=== PATIENT | male | born 1975 | race Caucasian/White ===

== ENCOUNTER → 2017-05-20 | Outpatient (CLI) | payer OTHER ==
[~2017-05-20] MED LIST: BENTYL20 MG PO; CLONAZEPAM0.5 MG PO; COENZYME Q10100 M1 PO; DEPAKOTE ER PO; DULERA 100 MCG/13 GM INH; FISH OIL 1,0001 EAC4; LEVOTHYROXINE50 MCG PO; LIPITOR20 MG PO; MAGNESIUM500 MG PO; MECLIZINE HCL25 M2 PO; MELATONIN3 MG PO; MONTELUKAST SOD10 MG PO; ONDANSETRON HCL4 M1 PO; PANTOPRAZOLE SO40 MG PO; PROPRANOLOL HCL40 MG PO; RIBOFLAVIN400 MG PO; VITAMIN B122500 MC1 PO; VYVANSE30 MG PO
== END | disposition home or self-care (01) ==
LOC: CSSDAY 08:00
DX: G43.709 Chronic migraine without aura, not intractable, without status migrainosus (principal)
CPT/HCPCS: 96367; 96374; J1100; J3475

== ENCOUNTER → 2017-05-21 | Outpatient (CLI) | payer OTHER | END | disposition home or self-care (01) | LOC: CSSDAY 08:00 | DX: G43.109 Migraine with aura, not intractable, without status migrainosus (principal) | CPT/HCPCS: 96365; 96367; 96374; J1100; J3475 ==

== ENCOUNTER → 2017-05-22 | Outpatient (CLI) | payer OTHER | END | disposition home or self-care (01) | LOC: CSSDAY 08:00 | DX: R51 Headache (principal); Z79.899 Other long term (current) drug therapy | CPT/HCPCS: 96365; 96367; 96374; J1100; J3475 ==

== ENCOUNTER → 2017-05-25 | Outpatient (CLI) | payer OTHER ==
[~2017-05-25] VITALS: Ht 177.8 cm; Wt 90.7 kg
== END | disposition home or self-care (01) ==
LOC: CSSDAY 08:00
DX: G43.109 Migraine with aura, not intractable, without status migrainosus (principal)
CPT/HCPCS: 96365; 96367; 96374; J1100; J3475

== ENCOUNTER → 2017-05-26 | Outpatient (CLI) | payer OTHER | END | disposition home or self-care (01) | LOC: CSSDAY 08:00 | DX: G43.109 Migraine with aura, not intractable, without status migrainosus (principal) | CPT/HCPCS: 96365; 96367; 96374; J1100; J3475 ==